=== PATIENT | female | born 1955 | race Caucasian/White ===

== ENCOUNTER → 2017-06-07 | Outpatient (CLI) | payer MEDICARE ==
--- NOTE | 2017-06-08 11:41 | MAM ---
EXAM DESCRIPTION: 3D Screening BILATERAL CLINICAL HISTORY: 62 yearsFemaleSCREENING . No complaints. No family history of breast cancer. Postmenopausal. No HRT. COMPARISON: Baseline study at this facility.. No prior reports available. TECHNIQUE: Bilateral CC and MLO projection full-field images, 3-D tomosynthesis digital mammographic technique. Also bilateral synthesized CC/ MLO full-field images. CAD not utilized. FINDINGS: The breast parenchymal density pattern is: Extremely dense breast tissue, which lowers the sensitivity of mammography. No skin thickening or nipple retraction dense tissue is involving the anterior middle third of both breasts. Bilateral vascular calcifications. Bilateral solitary microcalcifications and coarse calcifications. Bilateral axillary lymph nodes. Bilateral intramammary lymph nodes. Skin mole on the medial left breast. Fatty tissue within the dense fibroglandular tissue lateral to the right nipple. No focal, stellate mass or density, focal asymmetry , and no suspicious microcalcifications bilaterally. IMPRESSION: BI-RADS CATEGORY: 2 - BENIGN FINDINGS. FOLLOW UP: Routine digital bilateral screening, one year interval from May 2017. Written communication explaining the IMPRESSION and follow-up, will be mailed to the patient and referring health care provider. According to the [employer], yearly mammograms are recommended starting at age 40 and continuing as long as a woman is in good health. Any breast change noted on a breast self-exam should be reported promptly to the patient's healthcare provider. Breast MRI is recommended for women with an approximately 20-25% or greater lifetime risk of breast cancer, including women with a strong family history of breast or ovarian cancer and women who have been treated for Hodgkin's disease. A negative mammographic report should not delay tissue diagnosis in patients with significant clinical history or physical findings. Extremely dense breast tissue limits the sensitivity of digital mammography. Electronically signed by: Rodrigo Gomez MD 06/08/2017 11:40 AM CDT
== END ==
LOC: MAMMO 13:12
PROVIDERS: ATTEND Internal Medicine
DX: Z12.31 Encounter for screening mammogram for malignant neoplasm of breast (principal)
CPT/HCPCS: 77063; G0202

== ENCOUNTER → 2017-12-22 | Outpatient (CLI) | payer MEDICARE ==
--- NOTE | 2017-12-23 21:04 | MRI ---
EXAM DESCRIPTION: Lumbar Spine w/o Contrast MRI. CLINICAL HISTORY: LOW BACK PAIN COMPARISON: MRI noncontrast 12/17/2014. TECHNIQUE: Multiplanar, multiple standard sequences, non contrast MRI, lumbar spine. FINDINGS: L5-S1: Disc desiccation and posterior disc space loss. Tiny bulge. Flavum ligament hypertrophy with facets are unremarkable. Anterior right Modic type II endplate reactive changes. Mild narrowing of the right foramen and moderate narrowing of the left foramen. Mild canal narrowing. L4-5: Disc desiccation with no significant bulging. Posterior flavum ligament hypertrophy bilaterally and minimal right facet arthrosis. Moderate right foraminal narrowing and mild left foraminal narrowing. L3-4: Minimal disc desiccation and posterior disc space loss. Posterior broad-based minimal disc bulge. Mild canal narrowing. Posterior elements are unremarkable. Mild bilateral foraminal narrowing. L2-3: Disc desiccation old depression deformity of the superior endplate. 3 mm retropulsion stable with grade 1 anterolisthesis. Minimal broad-based posterior disc bulge. Minimal ligament hypertrophy and facet arthrosis with mild canal narrowing. Bilateral disc bulge into the foramina with moderate narrowing. L1-2: Disc space preserved with physiologic signal in the disc. Posterior elements unremarkable. No significant canal narrowing or foraminal narrowing. Conus terminates at this level. Canal and foramina are patent. T12-L1: Physiologic signal in the disc and disc space maintained. No scoliosis. Paravertebral soft tissues minimal muscle atrophy. Minimal arthrosis superior facets bilaterally and marrow reconversion in the sacrum. Otherwise normal marrow signal in the remaining vertebral bodies and the posterior elements. Vertebral bodies are not compressed at any level. IMPRESSION: 1. Multiple levels of disc desiccation and posterior ligament hypertrophy and facet arthrosis. No canal stenosis at any level. Old compression injury of the superior L3 endplate with retropulsion and posterior L2-3 disc bulge but no canal or foraminal stenosis.. Bilateral disc bulge into the foramina, Stable since the prior study. 2. No disc herniation at any level. No canal or foraminal stenosis. Stable since the prior study. Electronically signed by: Rodrigo Gomez MD 12/23/2017 9:03 PM CDT Workstation: [id number]
== END ==
LOC: MRI 12:07
PROVIDERS: ATTEND Psychiatry & Neurology Pain Medicine
DX: M51.36 Other intervertebral disc degeneration, lumbar region (principal)

== ENCOUNTER → 2018-04-11 | Outpatient (CLI) | payer MEDICARE ==
--- NOTE | 2018-04-11 14:55 | MRI ---
EXAM DESCRIPTION: Lumbar Spine w/o Contrast : Magnetic Resonance Imaging. CLINICAL HISTORY: SPONDYLOSIS COMPARISON: MRI lumbar spine 12/22/2017. TECHNIQUE: Multiplanar, multiple standard sequences, non contrast MRI, lumbar spine. FINDINGS: L5-S1: Rudimentary S1-S2 disc space. L5-S1 disc space is visible on T2-weighted axial series 501, image 3. Disc desiccation minimal posterior disc space loss. Tiny posterior midline bulge. Bilateral mild facet arthrosis and flavum ligament hypertrophy. Mild canal narrowing. Bilateral mild foraminal narrowing. Diffuse bright T1 and T2 weighted signal in the S1 sacral segment. Stable since the prior study. L4-5: Normal disc signal and disc space preserved. Bilateral flavum ligament hypertrophy and arthrosis right facet. Canal patent. Mild left foraminal narrowing and moderate right foraminal narrowing. Minimal bright T1 and T2-weighted signal scattered through the L5 vertebral body. This is also seen on the endplates abutting the anterior L5-S1 disc space and may represent moderate spondylosis, but more likely fatty reconversion. Null signal on the inversion recovery images. No change since the prior study. L3-4: Minimal posterior disc desiccation and tiny posterior broad-based bulge. Posterior elements are unremarkable. Mild bilateral canal narrowing. Patchy scattered T1 and T2 weighted bright signal in the L4 vertebral body. Stable since the prior study. L2-3: Minimally desiccated signal in the disc. Concavity of the superior endplate and possible Schmorl's node. Anterior bulging of the disc. 2 mm retropulsion of the superior endplate. No marrow edema in the endplate. Tiny posterior broad-based disc bulge with more bulging into the bilateral foramina. Canal is patent. Posterior elements are unremarkable. Moderate narrowing on the right foramen minimal narrowing on the left. No change since the prior study. L1-2: Normal signal in the disc with disc space preserved. Posterior elements are unremarkable. Canal and foramina are patent. Conus terminates at this level. Stable since the prior study. T12-L1: Normal signal in the disc with disc space preserved. Posterior elements unremarkable. Canal and foramina are patent. Normal signal in the cord with no compression. No change since the prior study. Lumbar lordosis maintained with no scoliosis. Paravertebral soft tissues minimal muscle atrophy. Mostly fatty marrow signal in the sacrum which is stable. Normal marrow signal in the remaining vertebral bodies and the posterior elements. Vertebral bodies are not compressed at any level. IMPRESSION: 1. Multiple levels of disc desiccation and foraminal narrowing but no canal or foraminal stenosis. Facet arthrosis and ligament hypertrophy at several levels. 2. Moderate right foraminal narrowing L4-5. Posterior endplate marrow reconversion and L5-S1 endplates more likely fatty marrow reconversion than spondylosis. 3. Prior mild compression deformity of the L3 superior endplate with minimal retropulsion. Stable with no marrow edema. Canal and foraminal narrowing. 4. No disc herniation, canal or foraminal stenosis at any level, no change since the prior study. Electronically signed by: Rodrigo Gomez MD 04/11/2018 2:54 PM CDT
== END ==
LOC: MRI 08:38
PROVIDERS: ATTEND Anesthesiology
DX: M47.816 Spondylosis without myelopathy or radiculopathy, lumbar region (principal)

== ENCOUNTER 2018-11-07 05:31 | Day surgery (SDC) | payer MEDICARE ==
[2018-11-07] MEDS ORDERED: LACTATED RINGERS 1,000 ML ONE (06:08)
[2018-11-07] MEDS ORDERED: LIDOCAINE 1% 10 ML VIAL INJ ONE (07:16)
[2018-11-07] MEDS ORDERED: PROPOFOL 200 MG/20 ML VIAL IV ONE (07:16)
--- NOTE | 2018-11-07 10:04 | OP ---
DATE OF PROCEDURE: 11/07/18 PREOPERATIVE DIAGNOSIS: 1. History of colon cancer. 2. History of polyps. 3. Her last colonoscopy was in 2014. POSTOPERATIVE DIAGNOSIS: 1. Diverticulosis. PROCEDURE: 1. Colonoscopy. SURGEON: Zian Phillip MD. COMPLICATIONS: None apparent. BLOOD LOSS: None. MEDICATIONS: Monitored anesthesia care. DESCRIPTION OF PROCEDURE: Informed consent was obtained prior to sedation. The preprocedure cardiopulmonary assessment was satisfactory. The patient was placed in the left lateral decubitus position and was sedated. A digital rectal exam was unremarkable. The tip of the Olympus colonoscope was inserted in the rectum and guided over to the cecum. The patient has had a rectosigmoid resection. The rectosigmoid anastomosis is noted to be at 10 cm from the anus. The anastomosis is unremarkable. The scope was advanced on to the cecum. The cecum was identified by locating the ileocecal valve and appendiceal orifice. Prep was good. The mucosa of the cecum, ascending colon, hepatic flexure, transverse colon, splenic flexure, descending colon and sigmoid colon was closely examined. The rectum was just examined with a forward view as retroflexion was precluded by the prior surgery and anastomosis. I did retroflex in the cecum to get a retroflexed view of the right colon. The patient has some left sided diverticulosis, but otherwise her colonoscopy was unremarkable. No new polyps were identified. The procedure was then terminated. RECOMMENDATIONS: Followup colonoscopy in three years. Return to my office sooner if needed. #[id number] cc: Yury Carlos MD MTDD
[2018-11-07 13:00] VITALS: O2SAT 100
[2018-11-07 13:02] VITALS: BP 128/72; TEMP 97.7
== END 2018-11-07 10:25 | disposition home or self-care (01) ==
LOC: AMB 05:31
PROVIDERS: ATTEND Internal Medicine Gastroenterology
DX: Z08 Encounter for follow-up examination after completed treatment for malignant neoplasm (principal); K57.30 Diverticulosis of large intestine without perforation or abscess without bleeding; I10 Essential (primary) hypertension; F17.210 Nicotine dependence, cigarettes, uncomplicated; Z85.038 Personal history of other malignant neoplasm of large intestine; Z86.010 Personal history of colon polyps; Z86.73 Personal history of transient ischemic attack (TIA), and cerebral infarction without residual deficits; Z88.1 Allergy status to other antibiotic agents; Z79.899 Other long term (current) drug therapy
CPT/HCPCS: 00811; 45378; J3490; J7120

== ENCOUNTER → 2019-03-19 | Outpatient (CLI) | payer MEDICARE | LOC: LAB.O 09:57 | PROVIDERS: ATTEND Internal Medicine Gastroenterology | DX: B18.2 Chronic viral hepatitis C (principal) ==

== ENCOUNTER → 2020-03-19 | Outpatient (CLI) | payer MEDICARE ==
--- NOTE | 2020-03-19 13:40 | US ---
EXAM DESCRIPTION: Abdomen,Complete: Ultrasound. CLINICAL HISTORY: 64 years FemaleHEPATIC CIRRHOSIS COMPARISON: None Available. TECHNIQUE: Transabdominal scanning: grayscale and Doppler modes. FINDINGS: Gallbladder: Normal size with 1-2 gravity dependent stones near the neck of the gallbladder with acoustic shadowing. One stone measures 6 mm and a second stone measures 10 mm. 2 mm wall thickness with no fluid around the wall. Nontender with transducer pressure. Common bile duct: 5.5 mm normal caliber. Liver: Heterogeneously increased echogenicity. No focal lesions. Long axis right lobe 13.2 cm. Hepatopedal flow in the portal vein measuring 8 mm at the samanta hepatis. Normal caliber of the ducts. Smooth capsule with no ascites. Pancreas: Normal echogenicity and size with duct not seen.. Abdominal aorta: Normal caliber from the proximal segment of the distal bifurcation. IVC: visualized; normal caliber. Spleen normal echogenicity; long axis measurement is 9.9 cm. Right kidney: 9.2 cm Long axis. Volume 116.4 mL. Normal cortical thickness and echogenicity. No echogenic stones or hydronephrosis. Left kidney: 9.8 cm long axis. Volume 84.5 mL. Slight increase in echogenicity of the renal cortex with thickness 11 mm. No echogenic stones or hydronephrosis. IMPRESSION: 1. Cholelithiasis of the gallbladder with no wall thickening or fluid. Nontender. Common bile duct normal caliber. 2. Heterogeneous steatosis of the liver with no focal lesions. Not enlarged. Otherwise negative. Normal echogenicity of the pancreas. 3. Spleen and abdominal aorta unremarkable. Left renal volume loss compared to the right kidney and thinning cortex and increased echogenicity could indicate medical renal disease. Electronically signed by: Rodrigo Gomez MD 03/19/2020 1:39 PM CDT
== END ==
LOC: US 07:38
PROVIDERS: ATTEND Internal Medicine Gastroenterology
DX: K74.0 Hepatic fibrosis (principal); B18.2 Chronic viral hepatitis C; K80.20 Calculus of gallbladder without cholecystitis without obstruction; K76.0 Fatty (change of) liver, not elsewhere classified; N28.9 Disorder of kidney and ureter, unspecified

== ENCOUNTER → 2020-03-20 | Outpatient (CLI) | payer MEDICARE | LOC: LAB.O 07:28 | PROVIDERS: ATTEND Internal Medicine Gastroenterology | DX: B18.2 Chronic viral hepatitis C (principal) ==

== ENCOUNTER → 2020-04-06 | Outpatient (CLI) | payer MEDICARE | LOC: LAB.O 11:28 | PROVIDERS: ATTEND Internal Medicine Gastroenterology | DX: B18.2 Chronic viral hepatitis C (principal) ==

== ENCOUNTER → 2020-07-21 | Outpatient (CLI) | payer MEDICARE | LOC: LAB.O 10:24 | PROVIDERS: ATTEND Internal Medicine | DX: M06.9 Rheumatoid arthritis, unspecified (principal) ==

== ENCOUNTER → 2020-07-24 | Outpatient (CLI) | payer MEDICARE | LOC: LAB.O 10:29 | PROVIDERS: ATTEND Psychiatry & Neurology Neurology | DX: R10.9 Unspecified abdominal pain (principal); R79.89 Other specified abnormal findings of blood chemistry; R79.9 Abnormal finding of blood chemistry, unspecified; M45.9 Ankylosing spondylitis of unspecified sites in spine; M25.50 Pain in unspecified joint; F90.9 Attention-deficit hyperactivity disorder, unspecified type; M71.50 Other bursitis, not elsewhere classified, unspecified site; K50.90 Crohn's disease, unspecified, without complications; M15.0 Primary generalized (osteo)arthritis; F01.50 Vascular dementia, unspecified severity, without behavioral disturbance, psychotic disturbance, mood disturbance, and anxiety; G37.9 Demyelinating disease of central nervous system, unspecified; M33.90 Dermatopolymyositis, unspecified, organ involvement unspecified; F81.9 Developmental disorder of scholastic skills, unspecified; E11.9 Type 2 diabetes mellitus without complications; R53.83 Other fatigue; Z79.899 Other long term (current) drug therapy; M35.1 Other overlap syndromes; G35 Multiple sclerosis; M79.10 Myalgia, unspecified site; G70.00 Myasthenia gravis without (acute) exacerbation; G04.89 Other myelitis; M54.81 Occipital neuralgia; H46.9 Unspecified optic neuritis; M54.12 Radiculopathy, cervical region; M54.16 Radiculopathy, lumbar region; I73.00 Raynaud's syndrome without gangrene; G25.89 Other specified extrapyramidal and movement disorders; M06.9 Rheumatoid arthritis, unspecified; D86.9 Sarcoidosis, unspecified; M32.10 Systemic lupus erythematosus, organ or system involvement unspecified; M31.6 Other giant cell arteritis ==

== ENCOUNTER → 2020-09-22 | Outpatient (CLI) | payer MEDICARE, OTHER ==
--- NOTE | 2020-09-23 09:37 | NM ---
EXAM DESCRIPTION: Bone Scan,Limited: Nuclear Medicine CLINICAL HISTORY: 65 years Female INTERVERTEBRAL DISC DISORDERS WITH RADICULOPATHY, L-SPINE COMPARISON: MRI scan lumbar spine and abdominal ultrasound November 2019. TECHNIQUE: Patient injected with 25.6 mCi of technetium 99M MDP IV. SPECT imaging of the abdomen and pelvis in all 3 planes. Delayed gamma camera images of abdomen and pelvis from anterior-posterior and bilateral lateral projections were obtained 3 hr after injection. FINDINGS: Increased abnormal activity in the right L4-L5 facet joint and bilateral L5-S1 facet joints. Also in the L5-S1 endplates. Increased activity also in the bilateral SI joints. No abnormal activity in the remaining vertebral bodies or lumbar facet joints. Increased activity in the right renal pelvis. Otherwise normal soft tissue activity in the kidneys IMPRESSION: 1. Arthrosis in the bilateral L5-S1 facet joints, more active on the right. Arthrosis also in the right L4-L5 facet joint. Bilateral SI joint arthrosis. No abnormal activity in the vertebral bodies or the included long bones are flat bones. Consider correlation with plain radiographic findings view lumbar spine series. 2. Increased activity in size in the right renal pelvis. Not seen on prior abdominal ultrasound which included the kidneys. If renal abnormality is suspected, consider follow-up renal ultrasound. Electronically signed by: Rodrigo Gomez MD 09/23/2020 9:35 AM [employer]
== END ==
LOC: NM 08:42
PROVIDERS: ATTEND Psychiatry & Neurology Neurology
DX: M51.16 Intervertebral disc disorders with radiculopathy, lumbar region (principal); M47.897 Other spondylosis, lumbosacral region; M47.898 Other spondylosis, sacral and sacrococcygeal region
CPT/HCPCS: 78300; A9503

== ENCOUNTER → 2020-10-26 | Outpatient (CLI) | payer OTHER | LOC: LAB.O 11:09 | PROVIDERS: ATTEND Internal Medicine Gastroenterology | DX: K74.00 Hepatic fibrosis, unspecified (principal) ==

== ENCOUNTER → 2020-11-16 | Outpatient (CLI) | payer OTHER ==
--- NOTE | 2020-11-16 16:11 | RAD ---
EXAM DESCRIPTION: Hip Bilateral CLINICAL HISTORY: 65 years Female, BILAT HIP PAIN COMPARISON: None. Findings: Four view(s)/radiograph(s) Left total hip arthroplasty. No hardware complication. Osteopenia. Moderate right hip osteoarthritis. No acute fracture or dislocation. No focal soft tissue swelling. Pelvic phleboliths. IMPRESSION: No acute osseous abnormality identified in the pelvis. Electronically signed by: Pieter López MD 11/16/2020 4:10 PM [facility]
--- NOTE | 2020-11-17 10:42 | MRI ---
EXAM DESCRIPTION: Thoracic Spine w/o Contrast: Magnetic Resonance Imaging. CLINICAL HISTORY: THORACIC RADICULOPATHY COMPARISON: MRI scan of the thoracic spine without contrast May 2008. TECHNIQUE: Multiplanar, multiple standard sequences, non contrast MRI, thoracic spine. FINDINGS: T2-T3 disc and T3-T4 disc bulging posteriorly almost abutting the cord. Tiny bulging of T4-5 and T5-6 disc but not abutting the cord. Desiccation of the discs. Foramina are bilaterally narrowed at these levels but not stenotic. T6-T7 disc and T7-T8 disc are desiccated but disc spaces maintain an canal and foramina are patent. This has progressed since the prior study. No disc herniations at these levels. Remaining discs with normal signal. Disc bases are preserved. Canal and foramina are patent. Facet joints are unremarkable. Conus terminates at T12-L1. Cord with normal signal, no compression. No scoliosis. Paravertebral soft tissues are unremarkable. Normal marrow signal in the remaining vertebral bodies and the posterior elements. Vertebral bodies are not compressed at any level. IMPRESSION: 1. Disc desiccation and interspace narrowing and bulging at several levels but no significant bulging. This has progressed since the prior study 2007. No herniation. No canal or foraminal stenosis. Normal signal in the cord with no edema and no compression. Electronically signed by: Rodrigo Gomez MD 11/17/2020 10:[address] [facility]
== END ==
LOC: MRI 10:56
PROVIDERS: ATTEND Neurological Surgery
DX: M51.14 Intervertebral disc disorders with radiculopathy, thoracic region (principal); M25.559 Pain in unspecified hip